=== PATIENT | female | born 1950 | race African-American/Black ===

== ENCOUNTER 2025-02-13 09:52 | Inpatient (IN) | payer MEDICARE, MEDICAID ==
[~2025-02-13] VITALS: Ht 157.5 cm; Wt 45.8 kg
[2025-02-13 09:59] VITALS: O2SAT 97
[2025-02-13] MEDS: LACTATED RINGERS 1,000 ML IV SCH (11:33)
[2025-02-13] MEDS: ACETAMINOPHEN 1000MG/100ML 100 ML IV ONE (11:34)
[2025-02-13] MEDS: METOCLOPRAMIDE HCL 10MG/2ML VIAL IV ONE (11:34)
[2025-02-13 12:00] LABS: BASOPHILS % 0.7 % (0.0-2.0); EOSINOPHILS % 8.7 % (0.0-5.0); HEMATOCRIT. 43.4 % (36.0-48.0); HEMOGLOBIN. 14.1 g/dL (12.0-16.0); LYMPHOCYTES % 26.1 % (20.0-50.0); MEAN PLATELET VOLUME 8.1 fl (7.4-10.4); MONOCYTES % 10.5 % (2.0-8.0); NEUTROPHILS % 54.0 % (40.0-76.0); PLATELET 315 x1000/uL (130-400); RED BLOOD CELL COUNT 4.70 mill/uL (4.2-5.4); RED CELL DISTRIBUTION WIDTH 13.4 % (11.6-14.6)
[2025-02-13 12:11] LABS: CREATININE 0.8 mg/dL (0.6-1.0); UREA NITROGEN BLOOD 8 mg/dL (9-23)
[2025-02-13 12:12] LABS: TROPONIN I HIGH SENSITIVITY 6 ng/L (3.0-34)
[2025-02-13 12:13] LABS: ASPARTATE AMINOTRANSFERASE 22 IU/L (<34)
[2025-02-13 12:14] LABS: BILIRUBIN DIRECT < 0.1 mg/dL (<=3.0); BILIRUBIN TOTAL 0.3 mg/dL (0.1-1.0); PROTEIN TOTAL 6.5 g/dL (6.0-8.3)
[2025-02-13] MEDS ORDERED: CLONIDINE 0.1MG TABLET PO PRN (13:45)
[2025-02-13] MEDS ORDERED: ONDANSETRON HCL 4MG/2ML INJ IV PRN (13:45)
[2025-02-13] MEDS ORDERED: MAGNESIUM/ALUMINUM HYDROXIDE/SIMETHICONE 30ML UDC PO PRN (13:45)
[2025-02-13] MEDS ORDERED: ACETAMINOPHEN 325MG TABLET PO PRN (13:45)
[2025-02-13 14:01] LABS: TROPONIN I HIGH SENSITIVITY 6 ng/L (3.0-34)
[2025-02-13] MEDS: AMLODIPINE 5MG TABLET PO SCH (15:26)
[2025-02-13 16:00] VITALS: BP 123/72; PULSE 67; RESP 18; TEMP 35.9; O2SAT 100
[2025-02-13 17:42] VITALS: BP 152/65; PULSE 61; RESP 16; TEMP 35.306
[2025-02-13 20:00] VITALS: BP 132/82; PULSE 88; RESP 16; TEMP 36.3; O2SAT 98
[2025-02-14] VITALS (7 sets, daily range): BP systolic 111–154; BP diastolic 61–94; PULSE 60–94; RESP 16–18; TEMP 36.1–36.9; O2SAT 97–100
[2025-02-14 07:18] LABS: T4 FREE 1.22 ng/dL (0.89-1.76)
[2025-02-14] MEDS: THIAMINE HCL 100MG TABLET PO SCH (09:06)
[2025-02-14] MEDS: DIPHENHYDRAMINE 50MG/ML VIAL IV PRN (11:49)
[2025-02-14] MEDS: ACETAMINOPHEN 325MG TABLET PO PRN (21:07)
[2025-02-15] VITALS: BP 137/71; PULSE 68; RESP 18; TEMP 36.4; O2SAT 100
[2025-02-15 04:00] VITALS: BP 115/63; PULSE 83; RESP 17; TEMP 35.6; O2SAT 98
[2025-02-15] MEDS ORDERED: NALOXONE HCL 0.4MG/ML VIAL IV PRN (04:45)
[2025-02-15] MEDS: TRAMADOL 50MG TABLET PO PRN (06:32)
[2025-02-15 08:00] VITALS: BP 133/72; PULSE 73; RESP 16; TEMP 36.2; O2SAT 99
[2025-02-15 12:00] VITALS: BP 116/71; PULSE 66; RESP 17; TEMP 36.2; O2SAT 100
[2025-02-15 12:43] LABS: CLARITY URINE CLEAR (CLEAR); COLOR URINE YELLOW (YELLOW); GLUCOSE URINE NEGATIVE (NEGATIVE); KETONES URINE NEGATIVE (NEGATIVE); LEUKOCYTE ESTERASE URINE 1+ (NEGATIVE); NITRITE URINE NEGATIVE (NEGATIVE); OCCULT BLOOD URINE NEGATIVE (NEGATIVE); PH URINE 6.5 (4.5-8.0); PROTEIN URINE NEGATIVE (NEGATIVE); SPECIFIC GRAVITY URINE 1.022 (1.005-1.030); UROBILINOGEN URINE 0.2 E.U./dL (0.2-1.0)
[2025-02-15 13:02] LABS: *AMPHETAMINES SCREEN URINE NEGATIVE (NEGATIVE); *BENZODIAZEPINES SCREEN URINE NEGATIVE (NEGATIVE)
[2025-02-15 13:03] LABS: *BARBITURATES SCREEN URINE NEGATIVE (NEGATIVE); *COCAINE SCREEN URINE NEGATIVE (NEGATIVE); CANNABINOID URINE SCREEN NEGATIVE (NEGATIVE); ECSTASY MDMA SCREEN URINE NEGATIVE (NEGATIVE); METHADONE URINE SCREEN NEGATIVE (NEGATIVE); OPIATES URINE SCREEN NEGATIVE (NEGATIVE); PHENCYCLIDINE URINE SCREEN NEGATIVE (NEGATIVE)
[2025-02-15 13:21] LABS: SQUAMOUS EPITHELIAL CELL URINE 1+ /lpf (RARE/1+)
[2025-02-15 13:22] LABS: RBC URINE 0-2 /hpf (0-2)
[2025-02-15 13:23] LABS: BACTERIA URINE TRACE
[2025-02-15 16:00] VITALS: BP 151/87; PULSE 71; RESP 16; TEMP 36.4; O2SAT 98
[2025-02-15 20:00] VITALS: BP 125/65; PULSE 87; RESP 17; TEMP 35.6; O2SAT 100
[2025-02-16] VITALS: BP 144/80; PULSE 95; RESP 18; TEMP 36.4; O2SAT 95
[2025-02-16 04:00] VITALS: BP 143/80; PULSE 64; RESP 18; TEMP 36.7; O2SAT 100
[2025-02-16 08:00] VITALS: BP 109/58; PULSE 72; RESP 16; TEMP 36; O2SAT 99
[2025-02-16 12:00] VITALS: BP 128/74; PULSE 73; RESP 16; TEMP 36.3; O2SAT 98
[2025-02-16 16:00] VITALS: BP 151/84; PULSE 68; RESP 16; TEMP 36.1; O2SAT 98
[2025-02-16 20:00] VITALS: BP 143/90; PULSE 102; RESP 17; TEMP 36.8; O2SAT 97
[2025-02-16] MEDS: LACTULOSE 20G/30ML UDC PO NR (23:17)
[2025-02-17] VITALS: BP 120/88; PULSE 100; RESP 17; TEMP 36.6; O2SAT 97
[2025-02-17 04:00] VITALS: BP 119/70; PULSE 73; RESP 16; TEMP 36.4; O2SAT 97
[2025-02-17 06:56] LABS: BASOPHILS % 0.6 % (0.0-2.0); EOSINOPHILS % 3.6 % (0.0-5.0); HEMATOCRIT. 45.4 % (36.0-48.0); HEMOGLOBIN. 14.8 g/dL (12.0-16.0); LYMPHOCYTES % 13.1 % (20.0-50.0); MEAN PLATELET VOLUME 8.5 fl (7.4-10.4); MONOCYTES % 10.9 % (2.0-8.0); NEUTROPHILS % 71.8 % (40.0-76.0); PLATELET 328 x1000/uL (130-400); RED BLOOD CELL COUNT 5.05 mill/uL (4.2-5.4); RED CELL DISTRIBUTION WIDTH 13.6 % (11.6-14.6)
[2025-02-17 07:55] LABS: CREATININE 0.7 mg/dL (0.6-1.0); UREA NITROGEN BLOOD 9 mg/dL (9-23)
[2025-02-17 07:57] LABS: PHOSPHORUS 3.4 mg/dL (2.5-4.9)
[2025-02-17 08:00] VITALS: BP 133/85; PULSE 81; RESP 18; TEMP 37; O2SAT 97
[2025-02-17] MEDS: PSYLLIUM SEED PACKET PO SCH (09:00)
[2025-02-17] MEDS: NA PHOS,M-B/NA PHOS,DI-BA ENEMA 118ML PR NR (09:15)
[2025-02-17 12:00] VITALS: BP 119/70; PULSE 72; RESP 18; TEMP 37; O2SAT 97
[2025-02-17 16:00] VITALS: BP 128/96; PULSE 87; RESP 18; TEMP 36.4; O2SAT 97
[2025-02-17 20:00] VITALS: BP 128/86; PULSE 92; RESP 17; TEMP 36.7; O2SAT 95
[2025-02-18] VITALS: BP 110/58; PULSE 71; RESP 18; TEMP 36.6; O2SAT 95
[2025-02-18 04:00] VITALS: BP 145/86; PULSE 92; RESP 18; TEMP 36.6; O2SAT 93
[2025-02-18 08:00] VITALS: BP 132/93; PULSE 94; RESP 16; TEMP 36.1; O2SAT 94
[2025-02-18 12:00] VITALS: BP 124/95; PULSE 76; RESP 16; TEMP 36.4; O2SAT 96
[2025-02-18] MEDS: DIPHENHYDRAMINE 25MG CAPSULE PO PRN (13:40)
[2025-02-18 16:00] VITALS: BP 142/86; PULSE 76; RESP 16; TEMP 36.6; O2SAT 96
[2025-02-18] MEDS ORDERED: LORAZEPAM 2MG/ML UD SYRINGE IV SCH (17:45)
[2025-02-18 20:00] VITALS: BP 112/65; PULSE 76; RESP 16; TEMP 37.1; O2SAT 96
[2025-02-19] VITALS: BP 124/72; PULSE 94; RESP 16; TEMP 37.1; O2SAT 95
[2025-02-19 04:00] VITALS: BP 149/96; PULSE 101; RESP 17; TEMP 37; O2SAT 97
[2025-02-19 06:50] LABS: VITAMIN B12 SERUM 530 pg/mL (211-911)
[2025-02-19 08:00] VITALS: BP 145/83; PULSE 93; RESP 16; TEMP 36.3; O2SAT 96
[2025-02-19 12:00] VITALS: BP 132/69; PULSE 75; RESP 18; TEMP 36.4; O2SAT 98
[2025-02-19 16:00] VITALS: BP 138/74; PULSE 74; RESP 16; TEMP 36.3; O2SAT 97
[2025-02-19 20:00] VITALS: BP 120/66; PULSE 79; RESP 18; TEMP 36.5; O2SAT 94
[2025-02-20 08:00] VITALS: BP 130/85; PULSE 90; RESP 18; TEMP 36.4; O2SAT 95
[2025-02-20] MEDS ORDERED: NALOXONE HCL 0.4MG/ML VIAL IV PRN (14:30)
[2025-02-20 16:00] VITALS: BP 126/78; PULSE 80; RESP 18; TEMP 36.5; O2SAT 100
[2025-02-20 20:00] VITALS: BP 120/80; PULSE 81; RESP 20; TEMP 36.7; O2SAT 100
[2025-02-20] MEDS: PERMETHRIN 5% CREAM 60GM TOP SCH (20:46)
[2025-02-20] MEDS: IVERMECTIN 3 MG TABLET PO SCH (20:47)
[2025-02-21] VITALS: BP 135/41; PULSE 85; RESP 19; TEMP 37.1; O2SAT 100
[2025-02-21 04:00] VITALS: BP 120/80; PULSE 85; RESP 20; TEMP 36.4; O2SAT 100
[2025-02-21 08:00] VITALS: BP 135/74; PULSE 66; RESP 19; TEMP 36.5; O2SAT 97
[2025-02-21] MEDS: TRAMADOL 50MG TABLET PO PRN (09:10)
[2025-02-21 20:00] VITALS: BP 132/77; PULSE 96; RESP 19; TEMP 36.7; O2SAT 98
[2025-02-22 08:00] VITALS: BP 130/71; PULSE 91; RESP 18; TEMP 36.7; O2SAT 98
[2025-02-22] MEDS: DIPHENHYDRAMINE HCL/ZINC ACET 28 GM CREAM TOP PRN (12:47)
[2025-02-22 13:05] VITALS: BP 163/73; PULSE 80; RESP 19; TEMP 36.5; O2SAT 100
[2025-02-22 13:15] VITALS: BP 125/69
[2025-02-22 16:00] VITALS: BP 130/68; PULSE 78; RESP 19; TEMP 36.7; O2SAT 95
[2025-02-22 20:00] VITALS: BP 117/97; PULSE 89; RESP 18; TEMP 35.7; O2SAT 95
[2025-02-23] VITALS: BP 111/74; PULSE 97; RESP 19; TEMP 35; O2SAT 95
[2025-02-23 04:00] VITALS: BP 123/61; PULSE 92; RESP 19; TEMP 34.1; O2SAT 97
[2025-02-23 08:00] VITALS: BP 152/84; PULSE 91; RESP 18; TEMP 36.3; O2SAT 97
[2025-02-23 12:00] VITALS: BP 132/77; PULSE 78; RESP 18; TEMP 36.2; O2SAT 97
[2025-02-23 12:18] LABS: TRIGLYCERIDE 59.0 mg/dL (0-150)
[2025-02-23 12:19] LABS: LDL CHOLESTEROL 87.0 mg/dL (5-100)
[2025-02-23 16:00] VITALS: BP 132/84; PULSE 96; RESP 16; TEMP 36.6; O2SAT 95
[2025-02-23] MEDS ORDERED: LORAZEPAM 2MG/ML UD SYRINGE IV NR (16:30)
[2025-02-23 20:00] VITALS: BP 123/71; RESP 19; TEMP 36.4; O2SAT 96
[2025-02-24] VITALS: BP 107/73; PULSE 74; RESP 18; TEMP 36.6; O2SAT 96
[2025-02-24 04:00] VITALS: BP 106/70; PULSE 72; RESP 18; TEMP 36.5; O2SAT 96
[2025-02-24 12:00] VITALS: BP 122/93; PULSE 93; RESP 18; TEMP 36.5; O2SAT 97
[2025-02-24 12:29] LABS: BASOPHILS % 0.6 % (0.0-2.0); EOSINOPHILS % 5.5 % (0.0-5.0); HEMATOCRIT. 44.0 % (36.0-48.0); HEMOGLOBIN. 14.2 g/dL (12.0-16.0); LYMPHOCYTES % 9.6 % (20.0-50.0); MEAN PLATELET VOLUME 8.4 fl (7.4-10.4); MONOCYTES % 10.2 % (2.0-8.0); NEUTROPHILS % 74.1 % (40.0-76.0); PLATELET 290 x1000/uL (130-400); RED BLOOD CELL COUNT 4.83 mill/uL (4.2-5.4); RED CELL DISTRIBUTION WIDTH 13.6 % (11.6-14.6)
[2025-02-24 12:41] LABS: CREATININE 0.8 mg/dL (0.6-1.0); UREA NITROGEN BLOOD 13 mg/dL (9-23)
[2025-02-24 16:00] VITALS: BP 119/65; PULSE 69; RESP 18; TEMP 36.5; O2SAT 100
[2025-02-24 19:51] VITALS: BP 127/78; PULSE 90; RESP 19; TEMP 36.6; O2SAT 98
[2025-02-25] VITALS: BP 120/66; PULSE 91; RESP 18; TEMP 36.6; O2SAT 97
[2025-02-25 04:00] VITALS: BP 122/64; PULSE 90; RESP 18; TEMP 36.5; O2SAT 97
[2025-02-25 08:00] VITALS: BP 144/125; PULSE 96; RESP 18; TEMP 36.4; O2SAT 96
[2025-02-25 12:00] VITALS: BP 125/73; PULSE 85; RESP 19; TEMP 36.2; O2SAT 99
[2025-02-25 20:00] VITALS: BP 130/75; PULSE 88; RESP 18; TEMP 36.3; O2SAT 97
[2025-02-25] MEDS: PANTOT AC/MIN OIL/PET HY-PHL OINT (AQUAPHOR) TOP SCH (22:11)
[2025-02-26] VITALS: BP 130/70; PULSE 109; RESP 18; TEMP 33.2; O2SAT 96
[2025-02-26 04:00] VITALS: BP 122/77; PULSE 97; RESP 17; TEMP 36.5; O2SAT 93
[2025-02-26 08:00] VITALS: BP 124/77; PULSE 99; RESP 16; TEMP 36.7; O2SAT 95
[2025-02-26 12:00] VITALS: BP 109/73; PULSE 97; RESP 18; TEMP 36.4; O2SAT 99
[2025-02-26 16:00] VITALS: BP 120/69; PULSE 97; RESP 17; TEMP 36.7; O2SAT 99
[2025-02-26 20:00] VITALS: BP 124/77; PULSE 105; RESP 18; TEMP 36.6; O2SAT 100
[2025-02-27] VITALS: BP 127/74; PULSE 110; RESP 18; TEMP 38.3; O2SAT 98
[2025-02-27 04:00] VITALS: BP 100/64; PULSE 91; RESP 18; TEMP 36.6; O2SAT 96
[2025-02-27 08:00] VITALS: BP 116/59; PULSE 93; RESP 18; TEMP 36.8; O2SAT 97
[2025-02-27 12:08] VITALS: BP 109/52; PULSE 88; RESP 16; TEMP 36.4; O2SAT 99
[2025-02-27 16:00] VITALS: BP 104/71; PULSE 96; RESP 16; TEMP 36.6; O2SAT 98
[2025-02-27 20:00] VITALS: BP 116/69; PULSE 87; RESP 19; TEMP 36.6; O2SAT 98
[2025-02-27] MEDS: LORAZEPAM 1MG TABLET PO PRN (21:22)
[2025-02-28] VITALS (7 sets, daily range): BP systolic 90–142; BP diastolic 53–84; PULSE 78–94; RESP 17–18; TEMP 35.8–36.5; O2SAT 95–99
[2025-02-28] MEDS ORDERED: AMLO5TAB88 PO (08:50)
== END 2025-02-28 21:17 | disposition home health service (06) | DRG 70 ==
LOC: ER 09:52 → EDBEDREQ 10:42 → 5WST 12:28 → EDBEDREQ 12:48 → EDBEDREQTM 12:48 → 4WST 02-19 08:15 → UNDODISIN 02-19 09:04
PROVIDERS: ADMIT Student in an Organized Health Care Education/Training Program; ATTEND Student in an Organized Health Care Education/Training Program
DX: G93.41 Metabolic encephalopathy (principal); G82.50 Quadriplegia, unspecified; E87.0 Hyperosmolality and hypernatremia; N13.6 Pyonephrosis; K56.7 Ileus, unspecified; B86 Scabies; G25.9 Extrapyramidal and movement disorder, unspecified; F03.90 Unspecified dementia, unspecified severity, without behavioral disturbance, psychotic disturbance, mood disturbance, and anxiety; K76.0 Fatty (change of) liver, not elsewhere classified; R10.84 Generalized abdominal pain; G62.9 Polyneuropathy, unspecified; K56.41 Fecal impaction; M16.0 Bilateral primary osteoarthritis of hip; S20.319A Abrasion of unspecified front wall of thorax, initial encounter; L85.3 Xerosis cutis; X58.XXXA Exposure to other specified factors, initial encounter; N32.89 Other specified disorders of bladder; N81.10 Cystocele, unspecified; S30.810A Abrasion of lower back and pelvis, initial encounter; Z74.01 Bed confinement status; Z98.1 Arthrodesis status; Z99.3 Dependence on wheelchair; Y93.89 Activity, other specified; Y92.89 Other specified places as the place of occurrence of the external cause; Y99.8 Other external cause status
CPT/HCPCS: 36415; 71045; 73521; 74176; 76700; 80048; 80061; 80076; 80305; 81003; 82140; 82550; 82607; 83735; 84100; 84439; 84443; 84484; 85025; 92610; 93005; 93970; 97162; 97166; 97530; 97535; 99285; A4606; A6449; J1200; J2765; Q0163; J0131